=== PATIENT | male | born 2000 ===

== ENCOUNTER → 2021-03-03 | Outpatient (REF) | payer OTHER | LOC: M WUC 18:05 | PROVIDERS: ATTEND Physician Assistant | DX: Z20.2 Contact with and (suspected) exposure to infections with a predominantly sexual mode of transmission (principal) ==

== ENCOUNTER → 2021-05-03 | Outpatient (REF) | payer OTHER ==
[2021-05-03 15:22] LABS: GC DNA AMPLIFICATION NEGATIVE (NEGATIVE)
== END ==
LOC: M WUC 11:45
PROVIDERS: ATTEND Physician Assistant
DX: Z20.2 Contact with and (suspected) exposure to infections with a predominantly sexual mode of transmission (principal)